=== PATIENT | female | born 1975 | race African-American/Black ===

== ENCOUNTER 2017-03-05 09:30 | Inpatient (IN) | payer OTHER ==
[2017-03-08] MEDS ORDERED: morphine SULFATE/Preservative Free 0.5 MG/ML (1cc Syringe) ONE (22:33)
[2017-03-08] MEDS ORDERED: CITRIC ACID/SODIUM CITRATE 30 ML UNIT-DOSE CUP PO ONE (22:45)
[2017-03-08] MEDS ORDERED: ELECTROLYTE-148 SOLN 1,000 ML IV SCH (22:45)
[2017-03-08] MEDS ORDERED: ELECTROLYTE-148 SOLN 500 ML IV SCH (22:45)
[2017-03-08] MEDS ORDERED: TUBERCULIN PPD 5 TU/0.1ML SYRINGE (IN PATIENT USE ONLY) ID ONE (22:45)
[2017-03-08] MEDS ORDERED: ceFAZolin SODIUM 1 GM VIAL ONE (22:48)
[2017-03-08 22:54] VITALS: BMI 30.9
[2017-03-08] MEDS ORDERED: OXYTOCIN 20 UNITS in 0.9% NS 40 UNIT/2,000 ML INFUS.BAG IV ONE (22:58)
[2017-03-08] MEDS ORDERED: ELECTROLYTE-148 SOLN 500 ML IV ONE (23:13)
[2017-03-08] MEDS ORDERED: ONDANSETRON 4 MG/2 ML VIAL IVPUSH PRN (23:49)
--- NOTE | 2017-03-08 23:59 | HP ---
Past Medical History - Admission Chief Complaint: iup at term h/o previous section .she is c/o premature rupture of membrane. her antipartum course has been unremarkable. History of Present Illness: 42 year old female with a history of previous section x2 . she has a h/ o asthma which is well controlled .her antipartum course is otherwise uncomplicated. 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: Alzheimer's, CVA, Dementia, Migraine, Multiple Sclerosis, Peripheral Neuropathy, Parkinson's, Seizure, Syncope, TIA, Vertigo, Other Cardiovascular: No: AFIB, Aneurysm, Aortic Insufficiency, Aortic Stenosis, CAD, CHF, Deep Vein Thrombosis, HTN, Hyperlipdemia, AK, Mitral Insufficiency, Mitral Stenosis, Murmur, Pulmonary Hypertension, Other Pulmonary: Yes: Asthma Gastrointestinal: No: Ascites, Cancer, Constipation, Crohn's Disease, Diverticulitis, Diverticulosis, Esophageal Varices, Gastritis, GERD, GI Bleed, Hemorrhoids, Hiatal Hernia, Inflamatory Bowel Disease, Irritable Bowel Disease, Pancreatitis, Peptic Ulcer Disease, Ulcerative Colitis, Other Hepatobiliary: No: Cirrhosis, Cholelithiasis, Cholecystitis, Choledocholithiasis , Hepatitis A, Hepatitis B, Hepatitis C, Other Renal/: No: Renal Failure, Renal Inusuff, BPH, Cancer, Hematuria, Hemodialysis , Neurogenic Bladder, Renal Calculi, UTI, Other Reproductive: No: Ectopic , Endometriosis, Fibroids, PID, Polycystic Ovary Syndrome, Postmenopausal, Other ...: 4 ...Para: 2 ...Term: 2 ...: 0 ...Spon : 0 ...Induced : 1 ...Multiple Gestation: 0 ...LMP: 06/16/16 ... Weeks Gestation by Dates: 37.5 ...EDC by Dates: 03/23/17 ...EDC by Sono: 03/14/17 Heme/Onc: No: Anemia, B12 Deficiency, Bleeding Disorder, Cancer, Current Chemotherapy, Current Radiation Therapy, Hemochromatosis, Hypercoaguable State, Myeloproliferative Synd, Sickle Cell Disease, Sickle Cell Trait, Thrombocytopenia, Other Infectious Disease: No: AIDS, C-Diff, Herpes Zoster, HIV, MRSA, STD's, Tuberculosis, VREF, Other Psych: No: Addictions, Anxiety, Bipolar, Depression, Panic, Psychosis, Schizophrenia, Other Musculoskeletal: No: Bursitis, Chronic low back pain, Hemiparesis, Hemiplegia, Osteoarthritis, Paraplegia, Other Rheumatology: No: Fibromyalgia, Gout, Lupus, Rheumatoid Arthritis, Sarcoidosis, Vasculitis, Other ENT: No: Allergic Rhinitis, Sinusitis, Other Endocrine: No: Sublette's Disease, Canaan's Disease, Diabetes Insipidus, Diabetes Mellitus, Hyperparathyroidism, Hyperthyroidism, Hypothyroidism, Osteopenia, SIADH, Other Dermatology: No: Basal Cell, Cellulitis, Eczema, Melanoma, Psoriasis, Squamous Cell, Other - Past Surgical History Past Surgical History: Yes: Hx Myomectomy: No Hx Transabdominal Cerclage: No - Smoking History Smoking history: Never smoked Have you smoked in the past 12 months: No - Alcohol/Substance Use Hx Alcohol Use: No Home Medications - Allergies Allergies/Adverse Reactions: Allergies Allergy/AdvReac Type Severity Reaction Status Date / Time No Known Allergies Allergy Verified 03/04/17 15:37 - Home Medications Home Medications: Ambulatory Orders Pnv No.95/Ferrous Fum/Folic AC [ Tablet] 1 each PO DAILY 12/04/11 Albuterol Sulfate Inhaler - [Ventolin Hfa Inhaler -] 1 - 2 inh PO PRN PRN Review of Systems - Review of Systems Constitutional: denies: No Symptoms, Chills, Diaphoresis, Fever, Lethargy, Loss of Appetite, Malaise, Night Sweats, Unintentional Wgt. Loss, Weakness, Other Eyes: denies: No Symptoms, Blind Spots, Blurred Vision, Double Vision, Eye Pain , Floaters, Photophobia, Recent Change in Vision, Other HENT: denies: No Symptoms, Difficult Swallowing, Ear Discharge, Ear Pain, Epistaxis, Gingival Bleeding, Hearing Loss, Mouth Swelling, Nasal Congestion, Ocular Prosthesis, Throat Pain, Toothache, Ringing in Ears, Other Neck: denies: No Symptoms, Decreased ROM, Lumps, Pain on Movement, Stiffness, Swollen Glands, Tenderness, Other Cardiovascular: denies: No Symptoms, Chest Pain, Edema, Palpitations, Shortness of Breath, Other Respiratory: denies: No Symptoms, Cough, Exercise Intolerance, Hemoptysis, Orthopnea, PND, Snoring, SOB, SOB on Exertion, Wheezing, Other Gastrointestinal: denies: No Symptoms, Abdominal Pain, Bloating, Constipation, Diarrhea, Dysphagia, Indigestion, Melena, Nausea, Rectal Bleeding, Vomiting, Vomiting Blood, Other Genitourinary: denies: No Symptoms, Burning, Discharge, Dysuria, Flank Pain, Frequency, Hematuria, Incontinence, Lesions, Menses, Pain, Testicular Mass, Testicular Pain, Testicular Swelling, Urgency, Vaginal Bleeding, Other Breasts: denies: No Symptoms Reported, See HPI, Breast Implants, Discharge from Nipple, Lumps, Pain, Skin Changes, Other Musculoskeletal: denies: No Symptoms, Back Pain, Crepitus, Decreased ROM, Extremity Pain, Joint Pain, Joint Swelling, Muscle Pain, Muscle Cramps, Muscle Weakness, Other Integumentary: denies: No Symptoms, Blister, Bruising, Change in Color, Eczema, Erythema, Incision, Lesions, Lump, Pallor, Pruritis, Rash, Wound, Other Neurological: denies: No Symptoms, Change in LOC, Change in Speech, Confusion, Dizziness, Headache, Incoordination, Numbness, Parasthesia, Pre-Existing Deficit , Seizure, Syncope, Tremors, Unsteady Gait, Weakness, Other Endocrine: denies: No Symptoms, Excessive Sweating, Flushing, Increased Hunger, Increased Thirst, Intolerance to Cold, Intolerance to Heat, Unexplained Weight Gain, Unexplained Weight Loss, Other Hematology/Lymphatic: denies: No Symptoms, Easily Bruised, Excessive Bleeding, Swollen Glands, Other Psychiatric: denies: No Symptoms, Altered Sleep Pattern, Anxiety, Depression, Hallucinations, Panic, Paranoia, Suicidal, Other Physical Exam - Maternity Vital Signs: Vital Signs Temperature 98.0 F 03/08/17 22:00 Pulse Rate 91 H 03/08/17 22:00 Respiratory Rate 20 03/08/17 22:00 Blood Pressure 138/85 03/08/17 22:00 O2 Sat by Pulse Oximetry (%) Constitutional: Yes: Well Nourished, No Distress Eyes: Yes: WNL, Conjunctiva Clear HENT: Yes: WNL, Atraumatic, Normocephalic Neck: Yes: WNL, Supple Cardiovascular: Yes: WNL, Regular Rate and Rhythm Lungs: Clear to auscultation Breast(s): Yes: WNL - Abdominal Exam/OB Number of Fetuses: Single Presentation: Vertex Contractions: Yes Regularity: Irregular Intensity: Moderate Monitor Mode: External Heart Rate Location: [facility] Category: I Accelerations: Uniform Decelerations: None - Vaginal Exam/OB Vaginal Bleediing: No Speculum Exam: No Dilatation (cm): 4cm Effacement (%): 90 Amniotic Membrane Status: Ruptured Amniotic Fluid: Yes: Clear Presentation: Vertex/Position Station: -1 - Physical Exam Musculoskeletal: Yes: WNL Extremities: Yes: WNL Edema: No Integumentary: Yes: WNL Deep Tendon Reflex Grade: Normal +2 ...Motor Strength: WNL Psychiatric: Yes: Alert, Oriented Assessment/Plan iup at term previous section ruptured membranes
--- NOTE | 2017-03-09 00:19 | OP ---
Operative Note - Note: Operative Date: 03/09/17 Pre-Operative Diagnosis: iup at term ruptured membranes. previous section x 2 Operation: repeat low segment transverse section Findings: living male nuchal cord x1 normal looing tubes and ovaries. Post-Operative Diagnosis: Same as Pre-op Surgeon: Zahra Milton Sales Process Manager: Kristie Cee Anesthesiologist/MANAGER PHOTO: Dario Castro Anesthesia: Spinal Specimens Removed: placenta. segments of tubes Estimated Blood Loss (mls): 500 Drains & Tubes with Location: kirby to gravity Drains, Volume Out (mls): 500 Fluid Volume Replaced (mls): 1,000 Operative Report Dictated: Yes
[2017-03-09] MEDS ORDERED: METHYLERGONOVINE MALEATE 0.2 MG/1 ML AMP IM PRN (00:24)
[2017-03-09] MEDS ORDERED: IBUPROFEN 600 MG TABLET (FP) PO PRN (00:24)
[2017-03-09] MEDS ORDERED: oxyCODONE HCL 5 MG TABLET PO PRN (00:24)
[2017-03-09] MEDS ORDERED: ONDANSETRON 4 MG/2 ML VIAL ONE (00:44)
[2017-03-09] MEDS: OXYTOCIN 20 UNITS in 0.9% NS 20 UNIT/1,000 ML INFUS.BAG IV SCH ×3 (05:36→13:30)
--- NOTE | 2017-03-09 09:46 | PN ---
Progress Note (short form) - Note Progress Note: POST OP NOTE Patient seen. POD#1 repeat c-sec and BTL. Comfortable. No sig n/v/prurits/ sedation. No complaints/obvious anesthesia complications.
[2017-03-09] MEDS: ACETAMINOPHEN 325 MG TABLET (FP) PO PRN (19:34)
[2017-03-09] MEDS: IBUPROFEN 600 MG TABLET (FP) PO PRN (19:34)
[2017-03-09] MEDS: SIMETHICONE 80 MG TAB.CHEW (FP) PO PRN (19:34)
[2017-03-10] MEDS ORDERED: BISACODYL 10 MG SUPP.RECT RC PRN (00:24)
[2017-03-10] MEDS: OXYTOCIN 20 UNITS in 0.9% NS 20 UNIT/1,000 ML INFUS.BAG IV SCH (04:46)
[2017-03-10] MEDS: SIMETHICONE 80 MG TAB.CHEW (FP) PO PRN ×4 (05:15→21:44)
[2017-03-10] MEDS: ACETAMINOPHEN 325 MG TABLET (FP) PO PRN ×4 (05:15→21:45)
[2017-03-10] MEDS: IBUPROFEN 600 MG TABLET (FP) PO PRN ×4 (05:16→21:44)
--- NOTE | 2017-03-10 09:44 | PN ---
Post Progress Note - Subjective Subjective: Pt seen/evalauted and doing well. Pain controlled with oral medications. Voiding, ambulating. Lochia rubra minimal. CXR completed this a.m. for unknown PPD. No other complaints/concerns. Type of Delivery: Repeat C/S Vital Signs: Vital Signs Temperature 97.9 F 03/10/17 08:59 Pulse Rate 115 H 03/09/17 20:36 Respiratory Rate 18 03/09/17 20:36 Blood Pressure 126/80 03/10/17 08:59 O2 Sat by Pulse Oximetry (%) 98 03/09/17 00:45 Uterus: Yes: Fundus Firm, Fundus below umbilicus Incision: Yes: Sutures intact Abdomen/GI: Yes: Abdomen soft, Tolerating PO. No: Tender Lochia, amount: Small Extremities: Yes: Calves non-tender, Edema (trace LE edema B/L) Perineum: Yes: Intact Activity: Ambulating Problem List - Problems (1) delivery delivered Code(s): O82 - ENCOUNTER FOR DELIVERY WITHOUT INDICATION Assessment/Plan 42 y/o POD#2 s/p repeat delivery, doing well - Afebrile, mildly tachycardic, other VSS - will monitor and await CBC - CBC pending - regular diet, PO pain meds - CXR pending - routine post op care
[2017-03-10 10:39] LABS: BASO % 0.3 % (0-2.0); EOS # 0.2 #; EOS % 1.6 % (0-4.5); LYMPH # 0.7; MCH 26.3 pg (25.7-33.7); MCHC 32.2 g/dl (32.0-36.0); MEAN CELL VOLUME 81.8 fl (80-96); MEAN PLT VOLUME 9.6 fl (7.5-11.1); MONO # 0.8 #; NEUT % 85.3 % (42.8-82.8); PLATELET COUNT 292 K/MM3 (134-434); WHITE BLOOD COUNT 11.7 K/mm3 (4.0-10.0)
[2017-03-11] MEDS: ACETAMINOPHEN 325 MG TABLET (FP) PO PRN ×4 (03:37→21:09)
[2017-03-11] MEDS: SIMETHICONE 80 MG TAB.CHEW (FP) PO PRN ×4 (03:37→21:06)
[2017-03-11] MEDS: IBUPROFEN 600 MG TABLET (FP) PO PRN ×4 (03:38→21:06)
--- NOTE | 2017-03-11 07:35 | PN ---
Progress Note (SOAP) - Subjective Chief Complaint: Pt doing well - Current Medications Current Medications: Active Medications Acetaminophen (Tylenol -) 650 mg PO Q4H PRN PRN Reason: FEVER OR PAIN Last Admin: 03/11/17 03:37 Dose: 650 mg Bisacodyl (Dulcolax Suppository -) 10 mg RC PRN PRN PRN Reason: CONSTIPATION Last Admin: 03/10/17 07:26 Dose: 10 mg Ibuprofen (Motrin -) 600 mg PO Q4H PRN PRN Reason: PAIN Last Admin: 03/11/17 03:38 Dose: 600 mg Methylergonovine Maleate (Methergine Injection -) 0.2 mg IM Q4H PRN PRN Reason: Excessive Bleeding (L&D) Ondansetron HCl (Zofran Injection) 4 mg IVPUSH Q4H PRN PRN Reason: NAUSEA Last Admin: 03/08/17 00:45 Dose: 4 mg Oxycodone HCl (Roxicodone -) 5 mg PO Q4H PRN PRN Reason: PAIN LEVEL 1-5 Simethicone (Mylicon -) 80 mg PO Q4H PRN PRN Reason: GAS Last Admin: 03/11/17 03:37 Dose: 80 mg - Objective Vital Signs: Vital Signs Temperature 97.7 F 03/10/17 21:48 Pulse Rate 94 H 03/10/17 21:48 Respiratory Rate 20 03/10/17 21:48 Blood Pressure 127/77 03/10/17 21:48 O2 Sat by Pulse Oximetry (%) 98 03/09/17 00:45 Constitutional: Yes: Well Nourished, No Distress Respiratory: Yes: WNL Gastrointestinal: Yes: WNL ....Post : Yes: Uterus firm, Uterus non-tender Breast(s): Yes: WNL Musculoskeletal: Yes: WNL Extremities: Yes: WNL Edema: No Wound/Incision: Yes: Clean/Dry, Dressing Dry and Intact Labs Lab Results: CBC, BMP 03/10/17 06:00 Problem List - Problems (1) delivery delivered Code(s): O82 - ENCOUNTER FOR DELIVERY WITHOUT INDICATION Assessment/Plan POD2 Stable Plan Continue present management
--- NOTE | 2017-03-11 13:25 | PATH ---
Surgical Pathology Report Patient Name: DANY ARZATE [facility]. Rec. 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 PLACENTA, SECTION: 365 g THIRD TRIMESTER PLACENTA WITH TRIVASCULAR UMBILICAL CORD AND UNREMARKABLE PLACENTAL MEMBRANES. B. FALLOPIAN TUBE, LEFT, PARTIAL EXCISION: FULL LUMINAL PORTION OF UNREMARKABLE FALLOPIAN TUBE. C. FALLOPIAN TUBE, RIGHT, PARTIAL EXCISION: FULL LUMINAL PORTION OF UNREMARKABLE FALLOPIAN TUBE. Electronically Signed Augusta Pack M.D. Gross Description A. The specimen is received fresh labeled placenta and is a 365 gram, 19.0 x 14.0 x 2.0 cm. placenta with attached membranes and umbilical cord. The attached membranes are garcia, translucent with focal opacities and insert marginally. The umbilical cord measures 35 cm. in length and averages 1.1 cm. in diameter. The cord inserts eccentrically, 4 cm. to the nearest margin. No true knots or strictures are identified. Cut surface of the umbilical cord reveals 3 vessels. The surface is bennett-blue with minimal fibrin deposition and appropriate caliber vessels. The maternal surface is red-brown with focal defects. Sectioning reveals red-brown, spongy parenchyma. No lesions are identified. Rocket Engine Mechanic sections are submitted in three cassettes as follows: 1- membrane rolls and umbilical cord; 2-3- full thickness sections of placenta. B. Received in formalin labeled "left fallopian tube," is a 2 cm in length portion of fallopian tube. No fimbria are present. The outer surface is garcia-finch and smooth. Sectioning reveals an unremarkable lumen. Rocket Engine Mechanic sections are submitted in one cassette. C. Received in formalin labeled "right fallopian tube," is a 1.8 cm in length portion of fallopian tube. No fimbria are present. The outer surface is garcia-finch and smooth. Sectioning reveals an unremarkable lumen. Rocket Engine Mechanic sections are submitted in one cassette. DL/03/10/2017 saudi03/10/2017
--- NOTE | 2017-03-12 01:01 | PN ---
Post Progress Note Type of Delivery: Repeat C/S Vital Signs: Vital Signs Temperature 97.6 F 03/11/17 22:00 Pulse Rate 94 H 03/11/17 22:00 Respiratory Rate 18 03/11/17 22:00 Blood Pressure 150/88 03/11/17 22:00 O2 Sat by Pulse Oximetry (%) 98 03/09/17 00:45 Breast Exam: Yes: Soft Uterus: Yes: Fundus Firm Incision: Yes: Sutures intact Abdomen/GI: Yes: Abdomen soft Lochia: Yes: Serosa Lochia, amount: Moderate Extremities: Yes: Calves non-tender Activity: Ambulating - Labs Labs: CBC WBC 11.7 K/mm3 (4.0-10.0) H D 03/10/17 06:00 RBC 3.67 M/mm3 (3.60-5.2) 03/10/17 06:00 Hgb 9.7 GM/dL (10.7-15.3) L D 03/10/17 06:00 Hct 30.0 % (32.4-45.2) L D 03/10/17 06:00 MCV 81.8 fl (80-96) 03/10/17 06:00 MCH 26.3 pg (25.7-33.7) 03/10/17 06:00 MCHC 32.2 g/dl (32.0-36.0) 03/10/17 06:00 RDW 15.0 % (11.6-15.6) 03/10/17 06:00 Plt Count 292 K/MM3 (134-434) 03/10/17 06:00 MPV 9.6 fl (7.5-11.1) 03/10/17 06:00 Neutrophils % 85.3 % (42.8-82.8) H D 03/10/17 06:00 Lymphocytes % 6.2 % (8-40) L D 03/10/17 06:00 Monocytes % 6.6 % (3.8-10.2) 03/10/17 06:00 Eosinophils % 1.6 % (0-4.5) 03/10/17 06:00 Basophils % 0.3 % (0-2.0) 03/10/17 06:00 Assessment/Plan s/p section bilateral tubal ligation condition is stable plan to dioscharge home today f/u in 2 weeks for incision care and in 8 weeks for post evaluation
[2017-03-12] MEDS: SIMETHICONE 80 MG TAB.CHEW (FP) PO PRN (05:37)
[2017-03-12] MEDS: ACETAMINOPHEN 325 MG TABLET (FP) PO PRN (05:37)
[2017-03-12] MEDS: IBUPROFEN 600 MG TABLET (FP) PO PRN (05:39)
[2017-03-12 08:54] LABS: BASO # 0.1 #; BASO % 0.9 % (0-2.0); EOS # 0.4 #; EOS % 4.8 % (0-4.5); LYMPH # 1.2; MCH 26.8 pg (25.7-33.7); MCHC 32.9 g/dl (32.0-36.0); MEAN CELL VOLUME 81.4 fl (80-96); MONO # 0.4 #; NEUT # 6.1 #; PLATELET COUNT 414 K/MM3 (134-434); WHITE BLOOD COUNT 8.2 K/mm3 (4.0-10.0)
[2017-03-12 12:02] VITALS: BP 129/88; PULSE 80; TEMP 97.8
== END 2017-03-12 11:25 | disposition home or self-care (01) | DRG 766 ==
LOC: JLDR 03-08 22:00 → J3W 03-09 01:45
PROVIDERS: ADMIT Obstetrics & Gynecology; ATTEND Obstetrics & Gynecology
PROC: 10D00Z1 Extraction of Products of Conception, Low, Open Approach (ICD-10-PCS; principal; 2017-03-09)
PROC: 0U570ZZ Destruction of Bilateral Fallopian Tubes, Open Approach (ICD-10-PCS; 2017-03-09)
DX: O34.211 Maternal care for low transverse scar from previous cesarean delivery (principal); O26.893 Other specified pregnancy related conditions, third trimester; J45.909 Unspecified asthma, uncomplicated; Z3A.37 37 weeks gestation of pregnancy; Z37.0 Single live birth; Z30.2 Encounter for sterilization
CPT/HCPCS: 36415; 71020-TC; 85025; 86850; 86900; 86901; 88302-TC; 88307-TC